=== PATIENT | male | born 1990 | race Two or more races ===

== ENCOUNTER → 2020-08-23 | Emergency (ER) | payer OTHER ==
[~2020-08-23] VITALS: Ht 175.3 cm; Wt 108.9 kg
== END | disposition expired ==
LOC: ER 21:06
DX: T75.1XXA Unspecified effects of drowning and nonfatal submersion, initial encounter (principal); R09.2 Respiratory arrest; W16.311A Fall into other water striking water surface causing drowning and submersion, initial encounter; Y93.14 Activity, water aerobics and water exercise; Y92.832 Beach as the place of occurrence of the external cause; Y99.8 Other external cause status